=== PATIENT | female | born 2000 | race Caucasian/White ===

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

== ENCOUNTER → 2020-01-21 | Outpatient (CLI) | payer MEDICAID ==
[~2020-01-21] MED LIST changes: +FERR-23 PO; +IBUP-1773 PO
--- NOTE | 2020-01-21 16:34 | Diagnostic Imaging Report ---
INDICATION: Size and dates. TECHNIQUE: Multiple real-time grayscale images were obtained over the gravid uterus. COMPARISON: None FINDINGS: A mederos viable IUP measures 20 weeks 3 days for date of confinement 06/06/2020 and is in cephalic position. Amniotic fluid volume is normal. The SHANITA 9.4. The placenta is anterior with no abruption or previa. heart rate 158 bpm. The anatomical survey was normal. Biometrical measurements are as follows: Biparietal 4.85 cm, age 20 weeks 5 days. Head circumference 18.04 cm, age 20 weeks 4 days. Abdominal circumference 14.74 cm, age 20 weeks 1 days. Femur length 3.20 cm, age 20 weeks 0 days. Sonographic estimate age: 20 weeks 3 days. Sonographic estimated date of delivery: 06/06/2020. Estimated Weight: 330 gm (+/- 48 gm). LMP percentile: 27%. heart rate: 158 beats per minute. number: 1 of 1. IMPRESSION: Mederos viable IUP measures 20 weeks 3 days with no pathological finding Dictated by: Dictated on workstation # [id number]
== END ==
LOC: RAD 13:38
PROVIDERS: ATTEND Nurse Practitioner Women's Health
DX: Z34.92 Encounter for supervision of normal pregnancy, unspecified, second trimester (principal); Z3A.20 20 weeks gestation of pregnancy
CPT/HCPCS: 76805

== ENCOUNTER → 2020-05-16 | Outpatient (CLI) | payer OTHER, MEDICAID | LOC: LABNPT 15:52 | PROVIDERS: ATTEND Obstetrics & Gynecology | DX: O13.9 Gestational [pregnancy-induced] hypertension without significant proteinuria, unspecified trimester (principal); Z3A.00 Weeks of gestation of pregnancy not specified | CPT/HCPCS: 82570; 84156 ==

== ENCOUNTER 2020-05-30 04:01 | Inpatient (IN) | payer MEDICAID, OTHER ==
[~2020-05-30] VITALS: Ht 175.3 cm; Wt 85.9 kg
[2020-05-30] VITALS (44 sets, daily range): BP systolic 106–150; BP diastolic 9–100
[~2020-05-30 04:01] MED LIST changes: +AMPICILLIN FOR IV USE 2,000 MG VIAL ONE; +WATER (STERILE) FOR INJECTION 20 ML ONE
[2020-05-30] MEDS ORDERED: AMPICILLIN FOR IV USE 2,000 MG in WATER (STERILE) FOR INJECTION 14.8 ML IV SCH (04:30)
[2020-05-30] MEDS ORDERED: D5 LR IV SOLUTION 1,000 ML IV SCH (04:30)
[2020-05-30] MEDS ORDERED: fentaNYL 2 mcg/ml BUPIVA 0.125 100 ML ONE (04:39)
[2020-05-30 05:15] LABS: BASOPHILS % (AUTO) 0 % (0-10); EOSINOPHILS # (AUTO) 0.1 10^3/uL (0.0-0.3); EOSINOPHILS % (AUTO) 1 % (0-10); HEMATOCRIT 38 % (35-52); LYMPHOCYTES # (AUTO) 2.2 10^3/uL (1.0-4.0); LYMPHOCYTES % (AUTO) 19 % (12-44); MEAN CORPUSCULAR HEMOGLOBIN 31 pg (25-34); MEAN CORPUSCULAR HGB CONC 35 g/dL (32-36); MEAN CORPUSCULAR VOLUME 89 fL (80-99); MEAN PLATELET VOLUME 10.9 fL (9.0-12.2); MONOCYTES # (AUTO) 0.8 10^3/uL (0.0-1.0); MONOCYTES % (AUTO) 7 % (0-12); NEUTROPHILS # (AUTO) 8.1 10^3/uL (1.8-7.8); NEUTROPHILS % (AUTO) 71 % (42-75); PLATELET COUNT 161 10^3/uL (130-400); WHITE BLOOD COUNT 11.3 10^3/uL (4.3-11.0)
[2020-05-30] MEDS ORDERED: CATHETER FLUSH 10 ML SYR IV SCH ×2 (06:00→14:00)
[2020-05-30] MEDS ORDERED: fentaNYL INJECTION 100 MCG/2 ML AMP ONE (06:29)
[2020-05-30] MEDS ORDERED: LACTATED RINGERS 1,000 ML IV SCH (07:09)
[2020-05-30] MEDS ORDERED: ONDANSETRON 4 MG/2 ML (SDV) Z0FRAN IV PRN (07:15)
[2020-05-30] MEDS ORDERED: NALOXONE 0.4 MG/ML 1 ML (NARCAN) VIAL IV PRN (07:15)
[2020-05-30] MEDS ORDERED: EPIDURAL (fentaNYL 2 MCG/ML BUPIVA 0.125%)100 ML BAG EPI PRN (07:15)
[2020-05-30] MEDS ORDERED: diphenhydrAMINE 50 MG/ML INJ (BENADRYL) IV PRN (07:15)
[2020-05-30] MEDS ORDERED: fentaNYL 2 mcg/ml BUPIVA 0.125 100 ML EPI PRN (07:30)
[2020-05-30] MEDS ORDERED: OXYTOCIN PRE-MIX DRIP 500 ML IV ONE (08:23)
--- NOTE | 2020-05-30 08:24 | History & Physical-OB ---
OB - Chief Complaint & HPI Date/Time Date of Admission: Date of Admission: May 30, 2020 at 04:01 Date seen by a Provider: May 30, 2020 Time Seen by a Provider: 08:21 Chief Complaint/History OB-Reason for Admission/Chief: Onset of Labor Hx : 2 Hx Para: 1 Expected Date of Delivery: Jun 06, 2020 Gestational Age in Weeks: 39 Other reason for admission: Patient scheduled for induction this AM, presented in active labor fashion adviser. SROM approx 3 am. Admission Nurse Assessment Rev: Yes History of Labs B pos antibody neg RI RPR NR HBsAg NR HIV NR GC neg GBS pos Allergies and Home Medications Allergies Coded Allergies: No Known Drug Allergies (Unverified , 09/29/16) Home Medications Ferrous Sulfate 325 Mg Tablet, 325 MG PO DAILY Prescribed by: BOB AGRAWAL on 08/01/17 0930 Ibuprofen 600 Mg Tablet, 600 MG PO Q6H PRN for PAIN-MODERATE Prescribed by: BOB AGRAWAL on 08/01/17 0930 [id number]/Iron Fumarate/FA/Dss Unknown Strength Tablet, Unknown Dose PO DAILY, (Reported) Patient Home Medication List Home Medication List Reviewed: Yes OB - History Hx of Present Care: Yes Ultrasounds: Normal mid trimester US Obstetrical Complications: None Medical Complications: None Delivery History Hx Blood Disorders: No Adverse Rxn to Tranfusion: No (N/A) Patient Past Medical History None Social History/Family History HIV/AIDS: No Sexually Transmitted Disease: No Alcohol Use: Denies Use Recreational Drug Use: No Immunizations Hepatitis A: Yes Hepatitis B: Yes Tetanus Booster (TDap): Less than 5yrs Date of Influenza Vaccine: Apr 30, 2020 OB - Admission Exam Physical Exam Vitals: Vital Signs 05/30/20 05/30/20 04:30 07:00 Temp 37.0 Pulse 85 Resp 18 B/P (MAP) 134/82 (99) Pulse Ox 99 HEENT: NCAT Heart: Rhythm Normal Lungs: Clear Abdomen: Gravid Extremities: Normal Reflexes: Normal Cervical Dilatation: 5cm Effacement: 100% Station: 0 Membranes: Ruptured Amniotic Fluid: Clear Heart Rate: 130's Accelerations: Accelerations Present Decelerations: No Decelerations Short Term Variability: Present [facility] Variability: Average (6-25) Contractions on Admission: < 5 Minutes Apart Intensity: Firm Labs Laboratory Tests Test 05/30/20 05:05 Range/Units White Blood Count 11.3 H 4.3-11.0 10^3/uL Red Blood Count 4.25 3.80-5.11 10^6/uL Hemoglobin 13.0 11.5-16.0 g/dL Hematocrit 38 35-52 % Mean Corpuscular Volume 89 80-99 fL Mean Corpuscular Hemoglobin 31 25-34 pg Mean Corpuscular Hemoglobin Concent 35 32-36 g/dL Red Cell Distribution Width 11.8 10.0-14.5 % Platelet Count 161 130-400 10^3/uL Mean Platelet Volume 10.9 9.0-12.2 fL Immature Granulocyte % (Auto) 2 % Neutrophils (%) (Auto) 71 42-75 % Lymphocytes (%) (Auto) 19 12-44 % Monocytes (%) (Auto) 7 0-12 % Eosinophils (%) (Auto) 1 0-10 % Basophils (%) (Auto) 0 0-10 % Neutrophils # (Auto) 8.1 H 1.8-7.8 10^3/uL Lymphocytes # (Auto) 2.2 1.0-4.0 10^3/uL Monocytes # (Auto) 0.8 0.0-1.0 10^3/uL Eosinophils # (Auto) 0.1 0.0-0.3 10^3/uL Basophils # (Auto) 0.0 0.0-0.1 10^3/uL Immature Granulocyte # (Auto) 0.2 H 0.0-0.1 10^3/uL OB - Assessment/Plan/Diagnosis Assessment Assessment: active labor Admission Dx 19 yo @ 39 weeks GBS pos Active labor Admission Status: Inpatient Order (span 2 midnights) Reason for Inpatient Admission: Active labor at 39 weeks Plan Plan: Expectant Management (Starting pitocin augmentation this am due to cervical exam little to no change from admission) ODALYS REAVES DO May 30, 2020 08:24
[2020-05-30] MEDS ORDERED: OXYTOCIN PRE-MIX DRIP 500 ML IV SCH ×2 (08:28→10:00)
[2020-05-30] MEDS ORDERED: AMPICILLIN FOR IV USE 1,000 MG in WATER (STERILE) FOR INJECTION 7.4 ML IV SCH (08:30)
--- NOTE | 2020-05-30 09:44 | NUR ---
spontaneous vaginal delivery of placenta with cord. fundal massage per dr disla. pitocin increased to 999ml/hr. 0955 pericare. ffu/0 with lt-mod rubra noted, no clots expressed. pt assisted to sf position and plan of care reviewed 1010 vss. ffu/0 with lt-mod rubra noted, no clots expressed. 1025 vss. ffu/0 with lt-mod rubra noted, holding . sandwich tray to bedside 1040 vss ffu/0 with lt-mod rubra noted, no clots expressed. t breast
[2020-05-30] MEDS ORDERED: BENZOCAINE/MENTHOL (DERMOPLAST) 60 ML CAN TP PRN (10:00)
[2020-05-30] MEDS ORDERED: TETANUS,DIPTH,PERTUSS P/F (BOOSTRIX) 0.5 ML VIAL IM ONE (10:00)
[2020-05-30] MEDS ORDERED: MEASLES,MUMPS,RUBELLA 1 EA INJ SQ ONE (10:00)
[2020-05-30] MEDS ORDERED: WITCH HAZEL(TUCKS) 40 EA JAR TOP PRN (10:00)
--- NOTE | 2020-05-30 10:05 | OB Labor & Delivery Record ---
L&D History Date of Service Date of Service: May 30, 2020 History Expected Date of Delivery: Jun 06, 2020 Gestational Age in Weeks: 39 Hx : 2 Hx Para: 1 Complications Events: Routine care Operative Indications (Cesarea: N/A-Vaginal Delivery Intrapartal Events: None L&D Stage1 Stage One Onset of Labor - Date: May 30, 2020 Monitors and Tracing Monitor Mode: External Heart Rate: 130 Monitor Accelerations: Uniform Monitor Decelerations: None Station: -2 Short Term Variability: Present Presentation: Vertex Vital Signs VS - Last 72 Hours, by Label 05/30/20 05/30/20 05/30/20 05/30/20 04:30 05:00 05:30 06:00 Temp 37.0 Pulse 86 Resp 18 18 18 18 B/P (MAP) 139/100 (113) Pulse Ox 98 05/30/20 05/30/20 05/30/20 05/30/20 06:30 06:40 06:43 06:46 Pulse 83 88 87 100 Resp 18 18 18 18 B/P (MAP) 133/87 (102) 134/88 (103) 139/85 (103) 141/86 (104) Pulse Ox 98 100 100 99 05/30/20 05/30/20 05/30/20 05/30/20 06:49 06:52 06:55 07:00 Pulse 92 90 88 85 Resp 18 18 18 18 B/P (MAP) 138/86 (103) 132/78 (96) 130/77 (94) 134/82 (99) Pulse Ox 99 99 99 99 05/30/20 05/30/20 05/30/20 05/30/20 07:03 07:06 07:09 07:12 Pulse 93 87 85 92 Resp 18 18 18 18 B/P (MAP) 125/75 (92) 120/71 (87) 125/81 (96) 123/77 (92) Pulse Ox 98 98 98 98 05/30/20 05/30/20 05/30/20 05/30/20 07:15 07:18 07:21 07:24 Pulse 90 76 80 81 Resp 18 18 18 18 B/P (MAP) 123/77 (92) 117/70 (86) 120/64 (82) 121/67 (85) Pulse Ox 97 97 97 98 05/30/20 05/30/20 05/30/20 05/30/20 07:27 07:30 07:33 07:36 Pulse 90 82 83 83 Resp 18 18 18 18 B/P (MAP) 122/69 (86) 116/71 (86) 121/73 (89) 133/75 (94) Pulse Ox 98 05/30/20 05/30/20 05/30/20 07:39 07:45 08:00 Temp 35.9 Pulse 83 81 106 Resp 18 18 18 B/P (MAP) 122/72 (89) 123/75 (91) 139/85 (103) Rupture of Membranes Spontaneous Ruture of Membrane: Yes Amniotic Membrane Rupture Time: 0330 Amniotic Membrane Fluid Desc.: Clear Vaginal Bleeding Description: Normal Show Induction/Anesthesia Epidural Cath Placement - Time: 0646 Progress/Notes Patient presented this am at 0400 for SROM at home and active labor. She was admitted, and GBS prophylaxis meds started. Epidural placed shortly after admission, this AM 0800 little progression was noted pitocin augmentation was started and the patient progressed to complete and +2 station shortly there after. L&D Stage2 Stage Two Stage II Date: May 30, 2020 Monitors and Tracing Monitor Mode: External Heart Rate: 130 Monitor Accelerations: Uniform Monitor Decelerations: Variable Outside Event Sales Specialist Variability: Average (6-10) Short Term Variability: Present Position: Right Occiput Anterior Presentation: Vertex Cord Descript/Complications Cord Vessel Description: 3 Vessels Complications nuchal cord reduced x 1 Delivery Type Delivery Method: Spontaneous Vaginal Anterior Shoulder: Right Episiotomy/Perineal Laceration Laceraction(s)/Extensions: No Condition of Condition of Condition of : Living Exam: No Observed Abnormalities live male , weight and apgars pending. Resuscitation Resuscitation: N/A - Spontaneous Resp L&D Stage3 Stage Three Stage III Date: May 30, 2020 Pictocin Pitocin Administration Comment: 30 mu wide open x 2 bags after delivery of placenta Placenta Delivery Placenta Delivery: Spontaneous Delivery Summary Summary Estimated blood loss (mL): 250 Attending at delivery: Odalys Reaves DO Condition of Delivery Examined: Cervix Examined, Uterus Explored Post Hemorrhage: No Condition of Mother stable Condition of (s) stable ODALYS REAVES DO May 30, 2020 10:05 am
[2020-05-30] MEDS ORDERED: IBUP-844 PO (10:06)
[2020-05-30] MEDS ORDERED: ACHD5005 PO (10:06)
[2020-05-30] MEDS ORDERED: FERR325T18 PO (10:06)
[2020-05-30] MEDS ORDERED: DCS100C PO (10:06)
--- NOTE | 2020-05-30 10:07 | Discharge Inst-Women's Service ---
Discharge Inst-Women's Serv Depart Medication/Instructions New, Converted or Re-Newed RX: RX on Chart Final Diagnosis PPD 1 NVD Problems Reviewed?: Yes Consults/Follow Up Additional Follow Up: Yes Orders/Referrals Dr. Reaves in 6 weeks Activity Activity: Activity as Tolerated Driving Instructions: No Driving for 1 Week NO SMOKING: NO SMOKING Nothing Inside Vagina: No Douching, No Nambe, No Tampons Diet Discharge Diet: No Restrictions Symptoms to Report to : Bleeding Excessive, Pain Increased, Fever Over 101 Degrees F, Vaginal Bleeding Increase, Questions/Concerns For Any Problems or Questions: Contact Your Physician ODALYS REAVES DO May 30, 2020 10:07 am
[2020-05-30] MEDS ORDERED: HYDROcodone/APAP 5 MG/325 MG (LORTAB) TAB PO PRN (10:15)
--- NOTE | 2020-05-30 11:50 | NUR ---
Pericare, pad changed and underwear on. Assisted to wheelchair and transferred with belongings to room 313. Oriented to room, call light and surroundings. pt instructed to call RN when needing to void. pt verbalized understanding.
--- NOTE | 2020-05-30 12:00 | NUR ---
Report to Greg Munguia RN
--- NOTE | 2020-05-30 12:15 | NUR ---
Up to BR with assistance of RN. Voided well. Shannan-care done with instructions.
[2020-05-30] MEDS: IBUPROFEN 600 MG (MOTRIN) TAB PO SCH ×2 (12:39→17:55)
--- NOTE | 2020-05-30 16:00 | NUR ---
Mother and infant doing well. Denies pain. S.O. at bedside.
[2020-05-30] MEDS: DOCUSATE SODIUM 100 MG (COLACE) CAP PO SCH (21:23)
[2020-05-31] MEDS: IBUPROFEN 600 MG (MOTRIN) TAB PO SCH ×3 (00:13→12:17)
[2020-05-31 05:42] LABS: BASOPHILS % (AUTO) 0 % (0-10); EOSINOPHILS # (AUTO) 0.1 10^3/uL (0.0-0.3); EOSINOPHILS % (AUTO) 1 % (0-10); HEMATOCRIT 34 % (35-52); HEMOGLOBIN 11.5 g/dL (11.5-16.0); LYMPHOCYTES # (AUTO) 2.3 10^3/uL (1.0-4.0); LYMPHOCYTES % (AUTO) 20 % (12-44); MEAN CORPUSCULAR HEMOGLOBIN 31 pg (25-34); MEAN CORPUSCULAR HGB CONC 34 g/dL (32-36); MEAN CORPUSCULAR VOLUME 90 fL (80-99); MONOCYTES # (AUTO) 0.9 10^3/uL (0.0-1.0); MONOCYTES % (AUTO) 8 % (0-12); NEUTROPHILS % (AUTO) 70 % (42-75); PLATELET COUNT 149 10^3/uL (130-400); WHITE BLOOD COUNT 11.5 10^3/uL (4.3-11.0)
[2020-05-31 06:26] VITALS: BP 130/90
[2020-05-31] MEDS ORDERED: PRENATAL VITAMIN 1 EA TAB PO SCH (07:00)
--- NOTE | 2020-05-31 07:23 | NUR ---
Report given to Gilma GRANDA
[2020-05-31] MEDS ORDERED: FERROUS SULF 325 MG (IRON) TAB PO SCH (08:00)
--- NOTE | 2020-05-31 08:22 | Postpartum Progress Note ---
Note Note Day # 1 Subjective: Patient is without complaints. Ambulating, voiding. Tolerating a regular diet without nausea or vomiting. Normal lochia. Pain is well controlled with oral pain medications. Objective: Physical Exam: General - Alert and oriented, no apparent distress Abdomen - Soft, appropriately tender to palpation, non-distended, fundus firm at umbilicus Extremities - no edema, negative Gilma's bilaterally Assessment: PPD 1 NVD Acute blood loss anemia Plan: Routine care. Encourage breast feeding. Encourage ambulation. Ferrous sulfate supplementation. Plan for discharge today Vitals - Labs Vital Signs - I&O Vital Signs Date Time Temp Pulse Resp B/P (MAP) Pulse Ox O2 Delivery O2 Flow Rate FiO2 05/31/20 06:26 36.4 71 20 130/90 (103) 99 05/30/20 21:00 36.5 84 18 134/89 (104) 99 Room Air 05/30/20 16:00 37.1 79 18 129/86 (100) 97 05/30/20 12:40 37.2 82 18 126/86 (99) 98 05/30/20 11:40 83 18 128/81 (97) 05/30/20 11:25 84 18 127/91 (103) 05/30/20 11:10 73 18 133/85 (101) 05/30/20 10:55 78 18 137/91 (106) 05/30/20 10:40 36.1 98 18 134/77 (96) 05/30/20 10:25 85 18 134/86 (102) 05/30/20 10:10 36.3 78 18 136/88 (104) 05/30/20 09:55 83 18 150/82 (104) 05/30/20 09:40 91 18 138/9 (52) 05/30/20 09:30 86 18 141/89 (106) 05/30/20 09:25 84 130/91 (104) 05/30/20 09:20 88 143/96 (112) 05/30/20 09:15 86 18 110/71 (84) 05/30/20 09:00 80 18 106/63 (77) 05/30/20 08:45 73 18 112/65 (81) 05/30/20 08:30 74 18 126/68 (87) I & O 05/31/20 07:00 Intake Total 1007.4 ml Balance 1007.4 ml Labs Laboratory Tests 05/31/20 05:27: White Blood Count 11.5H, Red Blood Count 3.72L, Hemoglobin 11.5, Hematocrit 34L, Mean Corpuscular Volume 90, Mean Corpuscular Hemoglobin 31, Mean Corpuscular Hemoglobin Concent 34, Red Cell Distribution Width 12.1, Platelet Count 149, Mean Platelet Volume 11.0, Immature Granulocyte % (Auto) 1, Neutrophils (%) (Auto) 70, Lymphocytes (%) (Auto) 20, Monocytes (%) (Auto) 8, Eosinophils (%) (Auto) 1, Basophils (%) (Auto) 0, Neutrophils # (Auto) 8.0H, Lymphocytes # (Auto) 2.3, Monocytes # (Auto) 0.9, Eosinophils # (Auto) 0.1, Basophils # (Auto) 0.0, Immature Granulocyte # (Auto) 0.1 ODALYS REAVES DO May 31, 2020 08:22
[2020-05-31] MEDS ORDERED: DOCUSATE CALCIUM 240 MG (SURFAK) CAP PO SCH (09:00)
[2020-05-31 09:01] VITALS: BP 120/76
--- NOTE | 2020-05-31 09:05 | Anesthesia-Regional Post-Op ---
Regional Patient Condition Mental Status: Alert, Oriented x3 Circulation: Same as Pre-Op Headache: Absent Sensation: Full Recovery Motor Block: Absent Post Op Complications Complications None Follow Up Care/Instructions Patient Instructions None needed. Anesthesia/Patient Condition Patient is doing well, no complaints, stable vital signs, no apparent adverse anesthesia problems. No complications reported per nursing. SUDHIR VEAGS CRNA May 31, 2020 09:05
[2020-05-31] MEDS: DOCUSATE SODIUM 100 MG (COLACE) CAP PO SCH (09:09)
[2020-05-31 13:31] VITALS: BP 130/86
--- NOTE | 2020-05-31 14:20 | NUR ---
Discharge instructions explained, signed and copy to patient. prescriptions given to patient and verbalized understanding of medications.
--- NOTE | 2020-05-31 14:44 | NUR ---
Report to Claus Chao
--- NOTE | 2020-05-31 17:40 | NUR ---
Motrin offered prior to dismissal. Pt declines, will take own motrin at home
--- NOTE | 2020-05-31 18:20 | NUR ---
Pt ambulates off unit to private vehicle accompanied by RN, S.O. and with all personal belongings. No s/s of distress noted.
== END 2020-05-31 18:20 | disposition home or self-care (01) | DRG 806 ==
LOC: LDRP 04:01
PROVIDERS: ADMIT Obstetrics & Gynecology; ATTEND Obstetrics & Gynecology
PROC: 10E0XZZ Delivery of Products of Conception, External Approach (ICD-10-PCS; principal; 2020-05-30)
DX: O69.81X0 Labor and delivery complicated by cord around neck, without compression, not applicable or unspecified (principal); D62 Acute posthemorrhagic anemia; Z37.0 Single live birth; Z3A.39 39 weeks gestation of pregnancy; O90.81 Anemia of the puerperium
CPT/HCPCS: 36415; 85025; 86850; 86900; 86901; 99212

== ENCOUNTER 2021-09-05 20:02 | Emergency (ER) | payer MEDICAID ==
[~2021-09-05] VITALS: Ht 175.3 cm; Wt 85.0 kg
[~2021-09-05 20:02] MED LIST changes: +ACHD5005 PO; -AMPICILLIN FOR IV USE 2,000 MG VIAL ONE; +DOCU-239 PO; +FERR325T18 PO; +IBUP-844 PO; -WATER (STERILE) FOR INJECTION 20 ML ONE
--- NOTE | 2021-09-05 20:23 | ED General ---
General Chief Complaint: COVID19 Suspect/Confirmed Stated Complaint: FEVER, CHILLS, SORE THROAT, CHEST PAIN Nursing Triage Note: RECENT COVID EXPOSURE, ANXIETY, SOA, FEVER/CHILLS, SORE THROAT Source of Information: Patient Exam Limitations: No Limitations History of Present Illness Date Seen by Provider: Sep 05, 2021 Time Seen by Provider: 20:22 Initial Comments To ER with chest pain cough shortness of breath onset this evening. She had a fever up to 103. She feels very anxious. Recent exposure to a COVID-positive patient. She is unvaccinated against COVID. Timing/Duration: 12 Hours Severity: Moderate Associated Systoms: Cough, Fever/Chills Allergies and Home Medications Allergies Coded Allergies: No Known Drug Allergies (Unverified , 09/29/16) Patient Home Medication List Home Medication List Reviewed: Yes Docusate Sodium (Dok) 100 Mg Capsule, 100 MG PO BID PRN for CONSTIPATION-1ST LINE Prescribed by: ODALYS REAVES on 05/30/20 1006 Ferrous Sulfate (Ferrous Sulfate) 325 Mg Tablet, 325 MG PO DAILY Prescribed by: ODALYS REAVES on 05/30/20 1006 Hydrocodone/Acetaminophen (Hydrocodone-Acetamin 5-325 mg) 1 Each Tablet, 1 TAB PO Q4H PRN for PAIN-MODERATE (5-7) Prescribed by: ODALYS REAVES on 05/30/20 1006 Ibuprofen (Ibu) 600 Mg Tablet, 600 MG PO Q6HR Prescribed by: ODALYS REAVES on 05/30/20 1006 Qec262/Iron Fumarate/FA/Dss ( 19 Tablet) Unknown Strength Tablet, Unknown Dose PO DAILY, (Reported) Entered as Reported by: NAVYA DICK on 04/15/17 0732 Review of Systems Review of Systems Constitutional: see HPI, chills EENTM: see HPI Respiratory: no symptoms reported Cardiovascular: no symptoms reported Genitourinary: no symptoms reported Musculoskeletal: no symptoms reported Skin: no symptoms reported Psychiatric/Neurological: No Symptoms Reported Hematologic/Lymphatic: No Symptoms Reported Past Vzyvheh-Zyhesk-Prmvor Hx Patient Social History Tobacco Use?: Yes Use of E-Cig and/or Vaping dev: Yes E-Cig or Vaping type used: Nicotine Substance use?: No Alcohol Use?: No Pt feels they are or have been: No Immunizations Up To Date Tetanus Booster (TDap): Less than 5yrs PED Vaccines UTD: Yes Seasonal Allergies Seasonal Allergies: No Past Medical History Surgery/Hospitalization HX: FEDERICO, ANXIETY Surgeries: Yes (DENTAL) Gallbladder Respiratory: No Cardiac: No Neurological: No Headaches /Migraines Reproductive Disorders: No Female Reproductive Disorders: Menstrual Problems Sexually Transmitted Disease: No HIV/AIDS: No Genitourinary: No UTI-Chronic Gastrointestinal: Yes Gastroesophageal Reflux Musculoskeletal: No Endocrine: No HEENT: No Cancer: No Psychosocial: No Integumentary: No Blood Disorders: No Adverse Reaction/Blood Tranf: No (N/A) Family Medical History Patient reports no known family medical history. No Pertinent Family Hx Physical Exam Vital Signs Vital Signs - First Documented 09/05/21 20:15 Temp 37.3 Pulse 120 Resp 18 B/P (MAP) 165/115 (132) Pulse Ox 98 O2 Delivery Room Air Capillary Refill : Less Than 3 Seconds Height, Weight, BMI Height: 5'5.00" Weight: 193lbs. 0.0oz. [id number]; 27.00 BMI Method:Stated General Appearance: No Apparent Distress, WD/WN Eyes: Bilateral Eye Normal Inspection, Bilateral Eye PERRL, Bilateral Eye EOMI HEENT: PERRL/EOMI, TMs Normal Neck: Full Range of Motion, Normal Inspection Respiratory: No Accessory Muscle Use, No Respiratory Distress Cardiovascular: Normal Peripheral Pulses, Tachycardia Gastrointestinal: Normal Bowel Sounds, Non Tender, Soft Extremity: Normal Capillary Refill, Normal Inspection Neurologic/Psychiatric: Alert, Oriented x3 Skin: Normal Color, Warm/Dry Progress/Results/Core Measures Suspected Sepsis SIRS Temperature: Pulse: 120 Respiratory Rate: 18 Laboratory Tests 09/05/21 20:21: White Blood Count 3.5L Blood Pressure 165 /115 Mean: 132 Laboratory Tests 09/05/21 20:21: Creatinine 0.88, Platelet Count 222, Total Bilirubin 0.6 Results/Orders Lab Results Laboratory Tests Test 09/05/21 20:21 Range/Units White Blood Count 3.5 L 4.3-11.0 10^3/uL Red Blood Count 4.83 3.80-5.11 10^6/uL Hemoglobin 14.3 11.5-16.0 g/dL Hematocrit 41 35-52 % Mean Corpuscular Volume 85 80-99 fL Mean Corpuscular Hemoglobin 30 25-34 pg Mean Corpuscular Hemoglobin Concent 35 32-36 g/dL Red Cell Distribution Width 11.4 10.0-14.5 % Platelet Count 222 130-400 10^3/uL Mean Platelet Volume 9.7 9.0-12.2 fL Immature Granulocyte % (Auto) 1 % Neutrophils (%) (Auto) 71 42-75 % Lymphocytes (%) (Auto) 13 12-44 % Monocytes (%) (Auto) 14 H 0-12 % Eosinophils (%) (Auto) 2 0-10 % Basophils (%) (Auto) 0 0-10 % Neutrophils # (Auto) 2.5 1.8-7.8 10^3/uL Lymphocytes # (Auto) 0.5 L 1.0-4.0 10^3/uL Monocytes # (Auto) 0.5 0.0-1.0 10^3/uL Eosinophils # (Auto) 0.1 0.0-0.3 10^3/uL Basophils # (Auto) 0.0 0.0-0.1 10^3/uL Immature Granulocyte # (Auto) 0.0 0.0-0.1 10^3/uL Urine Color YELLOW Urine Clarity CLEAR Urine pH 6.0 5-9 Urine Specific [place] >=1.030 1.016-1.022 Urine Protein NEGATIVE NEGATIVE Urine Glucose (UA) NEGATIVE NEGATIVE Urine Ketones NEGATIVE NEGATIVE Urine Nitrite NEGATIVE NEGATIVE Urine Bilirubin NEGATIVE NEGATIVE Urine Urobilinogen 0.2 < = 1.0 MG/DL Urine Leukocyte Esterase NEGATIVE NEGATIVE Urine RBC (Auto) NEGATIVE NEGATIVE Urine RBC 0-2 /HPF Urine WBC 0-2 /HPF Urine Squamous Epithelial Cells 2-5 /HPF Urine Renal Epithelial Cells NONE /HPF Urine Crystals NONE /LPF Urine Bacteria FEW H /HPF Urine Casts NONE /LPF Urine Mucus LARGE H /LPF Urine Culture Indicated NO Sodium Level 140 135-145 MMOL/L Potassium Level 3.6 3.6-5.0 MMOL/L Chloride Level 107 98-107 MMOL/L Carbon Dioxide Level 21 21-32 MMOL/L Anion Gap 12 5-14 MMOL/L Blood Urea Nitrogen 13 7-18 MG/DL Creatinine 0.88 0.60-1.30 MG/DL Estimat Glomerular Filtration Rate 95 BUN/Creatinine Ratio 15 Glucose Level 110 H 70-105 MG/DL Calcium Level 9.4 8.5-10.1 MG/DL Corrected Calcium 9.1 8.5-10.1 MG/DL Total Bilirubin 0.6 0.1-1.0 MG/DL Aspartate Amino Transf (AST/SGOT) 12 5-34 U/L Alanine Aminotransferase (ALT/SGPT) 10 0-55 U/L Alkaline Phosphatase 116 40-136 U/L Total Protein 7.9 6.4-8.2 GM/DL Albumin 4.4 3.2-4.5 GM/DL Serum Test, Qualitative NEGATIVE NEGATIVE Urine Opiates Screen NEGATIVE NEGATIVE Urine Oxycodone Screen NEGATIVE NEGATIVE Urine Methadone Screen NEGATIVE NEGATIVE Urine Propoxyphene Screen NEGATIVE NEGATIVE Urine Barbiturates Screen NEGATIVE NEGATIVE Ur Tricyclic Antidepressants Screen NEGATIVE NEGATIVE Urine Phencyclidine Screen NEGATIVE NEGATIVE Urine Amphetamines Screen NEGATIVE NEGATIVE Urine Methamphetamines Screen NEGATIVE NEGATIVE Urine Benzodiazepines Screen NEGATIVE NEGATIVE Urine Cocaine Screen NEGATIVE NEGATIVE Urine Cannabinoids Screen NEGATIVE NEGATIVE My Orders Orders - NAEEM JORDAN APRN Cbc With Automated Diff (09/05/21 20:20) Comprehensive Metabolic Panel (09/05/21 20:20) Hcg,Qualitative Serum (09/05/21 20:20) Ua Culture If Indicated (09/05/21 20:20) Coronavirus Sars-Cov-2 So 2018 (09/05/21 20:20) Alprazolam Tablet (Xanax Tablet) (09/05/21 20:30) Drug Screen Stat (Urine) (09/05/21 20:20) Vital Signs/I&O 09/05/21 09/05/21 20:15 21:16 Temp 37.3 36.7 Pulse 120 103 Resp 18 18 B/P (MAP) 165/115 (132) 133/88 Pulse Ox 98 97 O2 Delivery Room Air Room Air Capillary Refill : Less Than 3 Seconds Blood Pressure Mean: 132 Departure Impression Primary Impression: Anxiety Additional Impression: Viral syndrome Disposition: HOME, SELF-CARE Condition: Stable (Moy is on-call this evening so we will check some things give him a call and pick his bring here little) Departure-Patient Inst. Decision time for Depature: 21:10 Referrals: CARILNE MCCORMACK MD (PCP/Family) Primary Care Physician Patient Instructions: Anxiety, Adult ED Add. Discharge Instructions: 1. Tylenol and ibuprofen for fevers or chills. COVID swab will be back tomorrow. Return to ER for any worsening. All discharge instructions reviewed with patient and/or family. Voiced understanding. NAEEM JORDAN APRN Sep 05, 2021 20:23
[2021-09-05] MEDS ORDERED: ALPRAZolam 0.5 MG (XANAX) TAB PO SCH (20:30)
[2021-09-05 20:34] LABS: BASOPHILS % (AUTO) 0 % (0-10); EOSINOPHILS # (AUTO) 0.1 10^3/uL (0.0-0.3); EOSINOPHILS % (AUTO) 2 % (0-10); HEMATOCRIT 41 % (35-52); HEMOGLOBIN 14.3 g/dL (11.5-16.0); LYMPHOCYTES # (AUTO) 0.5 10^3/uL (1.0-4.0); LYMPHOCYTES % (AUTO) 13 % (12-44); MEAN CORPUSCULAR HEMOGLOBIN 30 pg (25-34); MEAN CORPUSCULAR HGB CONC 35 g/dL (32-36); MEAN CORPUSCULAR VOLUME 85 fL (80-99); MEAN PLATELET VOLUME 9.7 fL (9.0-12.2); MONOCYTES # (AUTO) 0.5 10^3/uL (0.0-1.0); MONOCYTES % (AUTO) 14 % (0-12); NEUTROPHILS # (AUTO) 2.5 10^3/uL (1.8-7.8); NEUTROPHILS % (AUTO) 71 % (42-75); PLATELET COUNT 222 10^3/uL (130-400); WHITE BLOOD COUNT 3.5 10^3/uL (4.3-11.0)
[2021-09-05 20:37] LABS: BILIRUBIN,URINE NEGATIVE (NEGATIVE); CLARITY,URINE CLEAR; COLOR,URINE YELLOW; GLUCOSE, URINE (UA) NEGATIVE (NEGATIVE); KETONES,URINE NEGATIVE (NEGATIVE); LEUKOCYTE ESTERASE ,URINE NEGATIVE (NEGATIVE); NITRITE,URINE NEGATIVE (NEGATIVE); PROTEIN,URINE NEGATIVE (NEGATIVE)
[2021-09-05 20:44] LABS: ALBUMIN 4.4 GM/DL (3.2-4.5)
[2021-09-05 20:45] LABS: POTASSIUM 3.6 MMOL/L (3.6-5.0)
[2021-09-05 20:46] LABS: CALCIUM 9.4 MG/DL (8.5-10.1)
[2021-09-05 20:47] LABS: TOTAL PROTEIN 7.9 GM/DL (6.4-8.2)
[2021-09-05 20:48] LABS: RBC,URINE 0-2 /HPF
[2021-09-05 20:49] LABS: BACTERIA,URINE FEW /HPF; BILIRUBIN,TOTAL 0.6 MG/DL (0.1-1.0); WBC,URINE 0-2 /HPF
[2021-09-05 20:50] LABS: CREATININE SERUM 0.88 MG/DL (0.60-1.30)
[2021-09-05 20:54] LABS: AMPHETAMINE SCREEN, URINE NEGATIVE (NEGATIVE); BARBITURATE SCREEN URINE NEGATIVE (NEGATIVE); BENZODIAZEPINES SCREEN URINE NEGATIVE (NEGATIVE); CANNABINOID SCREEN, URINE NEGATIVE (NEGATIVE); COCAINE SCREEN URINE NEGATIVE (NEGATIVE); METHADONE STAT NEGATIVE (NEGATIVE); METHAMPHETAMINE SCREEN URINE S NEGATIVE (NEGATIVE); OPIATE SCREEN URINE NEGATIVE (NEGATIVE); OXYCODONE STAT NEGATIVE (NEGATIVE); PROPOXYPHENE STAT NEGATIVE (NEGATIVE); TRICYCLIC ANTIDEPRESSANTS SCRE NEGATIVE (NEGATIVE)
[2021-09-05 21:16] VITALS: BP 133/88
== END 2021-09-05 21:18 | disposition home or self-care (01) ==
LOC: EDUNIT# 20:02 → ER 20:03
DX: U07.1 COVID-19 (principal); F41.9 Anxiety disorder, unspecified
CPT/HCPCS: 36415; 80053; 80306; 81000; 84703; 85025; 87635

== ENCOUNTER 2021-11-20 21:24 | Emergency (ER) | payer MEDICAID ==
[~2021-11-20] VITALS: Ht 165.1 cm; Wt 95.2 kg
[2021-11-20 21:45] VITALS: BP 137/90
--- NOTE | 2021-11-20 21:53 | ED General ---
General Stated Complaint: TONSILLS SWOLLEN Source of Information: Patient Exam Limitations: No Limitations History of Present Illness Date Seen by Provider: Nov 20, 2021 Time Seen by Provider: 21:49 Initial Comments To ER with reports of a sore throat onset this morning no cough. Son is at home with cough and runny nose. She is not had a fever. Timing/Duration: 12-24 Hours Severity: Moderate Associated Systoms: Denies Symptoms Allergies and Home Medications Allergies Coded Allergies: No Known Drug Allergies (Unverified , 09/29/16) Patient Home Medication List Home Medication List Reviewed: Yes Docusate Sodium (Dok) 100 Mg Capsule, 100 MG PO BID PRN for CONSTIPATION-1ST LINE Prescribed by: ODALYS REAVES on 05/30/20 1006 Ferrous Sulfate (Ferrous Sulfate) 325 Mg Tablet, 325 MG PO DAILY Prescribed by: ODALYS REAVES on 05/30/20 1006 Hydrocodone/Acetaminophen (Hydrocodone-Acetamin 5-325 mg) 1 Each Tablet, 1 TAB PO Q4H PRN for PAIN-MODERATE (5-7) Prescribed by: ODALYS REAVES on 05/30/20 1006 Ibuprofen (Ibu) 600 Mg Tablet, 600 MG PO Q6HR Prescribed by: ODALYS REAVES on 05/30/20 1006 Klx198/Iron Fumarate/FA/Dss ( 19 Tablet) Unknown Strength Tablet, Unknown Dose PO DAILY, (Reported) Entered as Reported by: NAVYA DICK on 04/15/17 0732 Review of Systems Review of Systems Constitutional: see HPI EENTM: see HPI Respiratory: no symptoms reported Cardiovascular: no symptoms reported Genitourinary: no symptoms reported Musculoskeletal: no symptoms reported Skin: no symptoms reported Psychiatric/Neurological: No Symptoms Reported Hematologic/Lymphatic: No Symptoms Reported Past Wwvtzhc-[id number]-Qsnoeo Hx Immunizations Up To Date Tetanus Booster (TDap): Less than 5yrs PED Vaccines UTD: Yes Seasonal Allergies Seasonal Allergies: No Past Medical History Surgery/Hospitalization HX: FEDERICO, ANXIETY Surgeries: Yes (DENTAL) Gallbladder Respiratory: No Cardiac: No Neurological: No Headaches /Migraines Reproductive Disorders: No Female Reproductive Disorders: Menstrual Problems Sexually Transmitted Disease: No HIV/AIDS: No Genitourinary: No UTI-Chronic Gastrointestinal: Yes Gastroesophageal Reflux Musculoskeletal: No Endocrine: No HEENT: No Cancer: No Psychosocial: No Integumentary: No Blood Disorders: No Adverse Reaction/Blood Tranf: No (N/A) Family Medical History Patient reports no known family medical history. No Pertinent Family Hx Physical Exam Vital Signs Capillary Refill : Height, Weight, BMI Height: 5'5.00" Weight: 193lbs. 0.0oz. 87.468759ns; 27.00 BMI Method:Stated General Appearance: No Apparent Distress, WD/WN Eyes: Bilateral Eye Normal Inspection, Bilateral Eye PERRL, Bilateral Eye EOMI HEENT: PERRL/EOMI, TMs Normal, Normal ENT Inspection, Pharynx Normal (At this time throat has a normal appearance without tonsillar enlargement or exudate or erythema. There is no uvular deviation. There is no palpable lymphadenopathy no ulcers.), Other Neck: Full Range of Motion, Normal Inspection; No Lymphadenopathy (L), No Lymphadenopathy (R) Respiratory: No Accessory Muscle Use, No Respiratory Distress Gastrointestinal: Normal Bowel Sounds, Non Tender, Soft Extremity: Normal Capillary Refill, Normal Inspection Neurologic/Psychiatric: Alert, Oriented x3 Skin: Normal Color, Warm/Dry Progress/Results/Core Measures Suspected Sepsis SIRS Temperature: Pulse: Respiratory Rate: Blood Pressure / Mean: Results/Orders My Orders Orders - NAEEM JORDAN APRN Dexamethasone Injection (Decadron Inje (11/20/21 22:00) Rapid Strep A Screen (11/20/21 21:49) Vital Signs/I&O Capillary Refill : Departure Impression Primary Impression: Pharyngitis Disposition: 01 HOME, SELF-CARE Condition: Stable Departure-Patient Inst. Decision time for Depature: 21:52 Referrals: CARLINE MCCORMACK MD (PCP/Family) Primary Care Physician Patient Instructions: Viral Pharyngitis Add. Discharge Instructions: 1. Continue to use Tylenol and ibuprofen for pain control. This is a viral cause of your sore throat. We will culture the strep swab to see if any bacteria grow. This will last typically 3 to 5 days and may get a little worse before it gets better. You can use [id number] sore throat lozenges as needed. Work/School Note: Work Release Form Date Seen in the Emergency Department: Nov 20, 2021 Return to Work: Nov 22, 2021 NAEEM JORDAN APRN Nov 20, 2021 21:52
== END 2021-11-20 22:32 | disposition home or self-care (01) ==
LOC: EDUNIT# 21:24 → ER 21:26
DX: J02.9 Acute pharyngitis, unspecified (principal)
CPT/HCPCS: 87430; 99283